=== PATIENT | female | born 1930 | race Caucasian/White ===

== ENCOUNTER 2018-08-16 06:46 | Emergency (ER) | payer OTHER ==
[~2018-08-16] VITALS: Ht 157.5 cm; Wt 49.9 kg
[~2018-08-16 06:46] MED LIST: AWAKE200 MG; CARBIDOPA5 GM
== END 2018-08-16 15:47 | disposition home or self-care (01) ==
LOC: ER 06:46
DX: S42.222A 2-part displaced fracture of surgical neck of left humerus, initial encounter for closed fracture (principal); S09.8XXA Other specified injuries of head, initial encounter; W18.09XA Striking against other object with subsequent fall, initial encounter; Y93.E8 Activity, other personal hygiene; Y92.012 Bathroom of single-family (private) house as the place of occurrence of the external cause; Y99.8 Other external cause status